=== PATIENT | male | born 1950 | race Caucasian/White ===

== ENCOUNTER 2017-01-27 20:46 | Inpatient (IN) | payer MEDICARE ==
[~2017-01-27] VITALS: Ht 175.2 cm; Wt 75.4 kg
--- NOTE | ~2017-01-27 | EKG ---
[place], [place] ELECTROCARDIOGRAM REPORT NAME: PATTY YAO UNIT #: [id number] ROOM: 419 DOCTOR: NESHA MAZA [facility] BIRTHDATE: [birth year] DOS: 01/27/2017 TIME: 2110. CONCLUSION: 1. Sinus rhythm. 2. Nonspecific ST changes. CARINE JEFFRIES MD CM:EKGRPT:ELECTROCARDIOGRAM REPORT [phone] CARINE JEFFRIES MD [facility]
[~2017-01-27 20:46] MED LIST: BENTYL10 MG PO; DONNATAL1 TAB PO; HYDROCODONE BIT1 T11 PO; MOTRIN800 MG PO; NEXIUM40 MG PO; PROBIOTIC FORMU1 CAP PO; TOBRADEX 0.1%-01 OI1 OP; Zofran4 MG PO
[2017-01-27 21:19] VITALS: BP 152/78
[2017-01-27 21:20] LABS: BASO % 0.6 % (0.0-1.0); EOS # 0.2 10*3/uL (0.0-0.4); EOS % 2.1 % (1.0-4.0); HEMATOCRIT 43.8 % (42.0-52.0); HEMOGLOBIN 15.3 g/dl (14.0-18.0); LYMPH # 1.8 10*3/uL (1.3-4.4); LYMPH % 25.5 % (27.0-41.0); MEAN CORPUSCULAR HGB 32.5 pg (27.0-31.0); MEAN CORPUSCULAR HGB CONC 34.9 g/dl (33.0-37.0); MEAN PLATELET VOLUME 9.8 fl (9.6-12.3); MONO # 0.5 10*3/uL (0.1-1.0); MONO % 7.5 % (3.0-9.0); NEUT # 4.6 10*3/uL (2.3-7.9); NEUT % 64.3 % (47.0-73.0); PLATELET COUNT AUTOMATED 151 10*3/uL (130-400); RED BLOOD COUNT 4.71 10*6/uL (4.50-5.90); RED CELL DISTRI WIDTH 12.3 % (0-14.5); WHITE BLOOD COUNT 7.2 10*3/uL (4.8-10.8)
[2017-01-27] MEDS ORDERED: ATIVAN1 MG PO (21:23)
[2017-01-27] MEDS ORDERED: PROTONIX40 MG PO (21:24)
[2017-01-27 21:26] VITALS: BP 166/98
[2017-01-27 21:34] LABS: ACT PARTIAL THROMBO TIME 24.7 SECONDS (20.8-31.5)
[2017-01-27 21:39] LABS: ALBUMIN 3.8 gm/dl (3.1-4.5); BUN 11 mg/dl (7-24); CHLORIDE 102 mmol/L (98-107); MAGNESIUM 2.2 mg/dL (1.5-2.1); POTASSIUM 3.5 mmol/L (3.5-5.1); SGOT/AST 20 IU/L (3-35); SGPT/ALT 21 U/L (12-78); SODIUM 139 mmol/L (136-145); TOTAL PROTEIN 7.2 gm/dL (6.4-8.2)
[2017-01-27 21:41] LABS: ALKALINE PHOSPHATASE 73 U/L (45-117)
[2017-01-27 21:44] LABS: TROPONIN I < 0.015 ng/ml (<0.045)
[2017-01-27 21:58] VITALS: BP 145/83
[2017-01-27 22:15] VITALS: BP 144/85
[2017-01-27 22:41] VITALS: BP 130/83
[2017-01-27 23:06] VITALS: BP 148/95
--- NOTE | 2017-01-27 23:32 | NUR ---
REPORT FROM AMANDA MEZA RN
--- NOTE | 2017-01-27 23:45 | NUR ---
A 66, admitted to , under the services of SARAH Carrillo DO with a diagnosis of CHEST PAIN. Chief complaint is CHEST PAIN. Patient arrived via stretcher from ER. Monitor applied. Initial assessment completed. Vital signs taken and recorded. SARAH CARRILLO DO notified of admission to the unit. Orders received. See assessment for past medical history, medications and allergies. Patient and/or family oriented to unit. [facility] reviewed. Clothing/patient valuable form completed. HAYES WESTBROOK
--- NOTE | 2017-01-27 23:57 | NUR ---
MED REC COMPLETED WITH PATIENT ALERT AND ORIENTED TO PERSON PLACE AND TIME
[2017-01-28] VITALS: BP 151/87
--- NOTE | 2017-01-28 00:28 | NUR ---
DR CR COVERING FOR DR JEFFRIES. STATES THAT HE CANNOT SEE THE PATIENT TOMORROW. IF THE PATIENT HAS ANYTHING COME UP ABNORMAL TO CALL AND HE CAN TRANSFER HIM, OR THEY CAN CONSULT ANOTHER IMPORT MANAGER. NURSING VOCAL ARTIST AWARE.
--- NOTE | 2017-01-28 00:30 | NUR ---
DR GARCIA AWARE OF CONVERSATION WITH DR CR
--- NOTE | 2017-01-28 02:16 | NUR ---
PATIENT RESTING IN BED WITH EYES CLOSED. RESPS EASY AND REGULAR. BED IN LOWEST POSITION, CALL KOFI MARTINA CLIFFORD
[2017-01-28 06:10] LABS: BASO # 0.1 10*3/uL (0.0-0.1); EOS # 0.2 10*3/uL (0.0-0.4); HEMATOCRIT 42.5 % (42.0-52.0); HEMOGLOBIN 14.6 g/dl (14.0-18.0); LYMPH # 1.6 10*3/uL (1.3-4.4); LYMPH % 31.8 % (27.0-41.0); MEAN CELL VOLUME 93.4 fl (80.0-94.0); MEAN CORPUSCULAR HGB 32.1 pg (27.0-31.0); MEAN CORPUSCULAR HGB CONC 34.4 g/dl (33.0-37.0); MONO # 0.5 10*3/uL (0.1-1.0); MONO % 9.6 % (3.0-9.0); NEUT # 2.7 10*3/uL (2.3-7.9); NEUT % 54.4 % (47.0-73.0); PLATELET COUNT AUTOMATED 128 10*3/uL (130-400); RED BLOOD COUNT 4.55 10*6/uL (4.50-5.90); RED CELL DISTRI WIDTH 12.5 % (0-14.5)
[2017-01-28 06:40] LABS: ALBUMIN 3.4 gm/dl (3.1-4.5); ALKALINE PHOSPHATASE 63 U/L (45-117); BUN 13 mg/dl (7-24); CHLORIDE 104 mmol/L (98-107); CHOLESTEROL 161 mg/dL (<200); CREATININE 1.14 mg/dL (0.70-1.30); HDL CHOLESTEROL 34 mg/dl (40-60); LDL CHOLESTEROL 102 mg/dL (9-159); MAGNESIUM 2.3 mg/dL (1.5-2.1); PHOSPHOROUS 3.5 mg/dL (2.5-4.9); POTASSIUM 3.6 mmol/L (3.5-5.1); SGOT/AST 14 IU/L (3-35); SGPT/ALT 16 U/L (12-78); SODIUM 139 mmol/L (136-145); TOTAL PROTEIN 6.4 gm/dL (6.4-8.2); TRIGLYCERIDES 124 mg/dl (<150); VLDL CHOLESTEROL 25 mg/dL (6-40)
[2017-01-28 06:46] LABS: VITAMIN D, 25-HYDROXY 23.8 ng/mL (30-100)
[2017-01-28 08:00] VITALS: BP 143/76
--- NOTE | 2017-01-28 08:25 | NUR ---
IN BED AWAKE ALERT AND ORIENTEDX3, FRIEND AT BEDSIDE. NO C/O. NO S/S OF DISTRESS. WILL CONT TO MONITOR. CALL LIGHT IN REACH. SEE ASSESS.
--- NOTE | 2017-01-28 10:26 | NUR ---
PT STATES HE ONLY GET NORCO AND ATIVAN [facility] AND THE OTHERS [facility] VIA MAIL. I DID VERIFY THESE MEDS WITH [employer].
--- NOTE | 2017-01-28 10:48 | NUR ---
Advisory Application Developer in to talk to patient. Patient states lives at home with . There are few steps in the home. Physician: susan Pharmacy: [facility] Home health services: none Patient's level of ADLs: INDEPENDENT Patient has working utilities: all working DME: none Follow-up physician's appointment after d/c: will be made by hospitalist nurse director upon discharge Does patient want to access PORTAL?: no Discharge plan discussed with patient, patient lives at home with , is independent in adls and ambulation, drives, denies any home needs. TIM MASSEY
[2017-01-28] MEDS ORDERED: B12,B-12,B 12500 MC1 PO (11:01)
[2017-01-28] MEDS ORDERED: VITAMIN D22000 UNIT PO (11:01)
--- NOTE | 2017-01-28 12:00 | NUR ---
PT DISCHARGED AT THIS TIME. VERBALIZED UNDERSTANDING OF DISCHARGE INSTRUCTIONS. HEART MONITOR RETURNED TO FLOOR. IV REMOVED AND PRESSURE DRESSING APPLIED.
== END 2017-01-28 12:00 | disposition home or self-care (01) | DRG 391 ==
LOC: ED 20:46 → 4E 22:29 → EDHOLD 22:29 → 4E 23:31
PROVIDERS: Emergency Medicine Emergency Medical Services; Hospitalist; ADMIT Internal Medicine
DX: K21.9 Gastro-esophageal reflux disease without esophagitis (principal); J18.9 Pneumonia, unspecified organism; F41.1 Generalized anxiety disorder; R07.89 Other chest pain; E55.9 Vitamin D deficiency, unspecified; E53.8 Deficiency of other specified B group vitamins; Z87.81 Personal history of (healed) traumatic fracture; Z79.899 Other long term (current) drug therapy; Z80.8 Family history of malignant neoplasm of other organs or systems

== ENCOUNTER 2018-05-17 10:33 | Emergency (ER) | payer MEDICARE ==
[~2018-05-17] VITALS: Ht 175.2 cm; Wt 76.2 kg
[~2018-05-17 10:33] MED LIST changes: +ATIVAN1 MG PO; +B12,B-12,B 12500 MC1 PO; +PROTONIX40 MG PO; +VITAMIN D22000 UNIT PO
[2018-05-17] MEDS ORDERED: Motrin,Rufen800 MG PO (12:16)
== END 2018-05-17 12:29 | disposition home or self-care (01) ==
LOC: ED 10:33
DX: S20.222A Contusion of left back wall of thorax, initial encounter (principal); R07.81 Pleurodynia; K21.9 Gastro-esophageal reflux disease without esophagitis; Z79.899 Other long term (current) drug therapy; W10.8XXA Fall (on) (from) other stairs and steps, initial encounter; Y93.89 Activity, other specified; Y92.89 Other specified places as the place of occurrence of the external cause; Y99.8 Other external cause status

== ENCOUNTER → 2019-03-22 | Outpatient (CLI) | payer MEDICARE ==
[~2019-03-22] MED LIST changes: +Motrin,Rufen800 MG PO
== END | disposition home or self-care (01) ==
LOC: US 14:00
DX: R22.32 Localized swelling, mass and lump, left upper limb (principal)

== ENCOUNTER → 2020-05-23 | Outpatient (CLI) | payer MEDICARE | END | disposition home or self-care (01) | LOC: COVID19 14:39 | PROVIDERS: ATTEND Nurse Practitioner Family | DX: J02.9 Acute pharyngitis, unspecified (principal); Z20.828 Contact with and (suspected) exposure to other viral communicable diseases ==

== ENCOUNTER → 2020-12-20 | Outpatient (CLI) | payer MEDICARE ==
[2020-12-20 13:33] LABS: BUN 11 mg/dl (7-24); CHLORIDE 104 mmol/L (98-107); CHOLESTEROL 203 mg/dL (<200); CREATININE 1.14 mg/dL (0.70-1.30); LDL CHOLESTEROL 130 mg/dL (9-159); POTASSIUM 3.6 mmol/L (3.5-5.1); SODIUM 139 mmol/L (136-145); TRIGLYCERIDES 155 mg/dl (<150)
== END | disposition home or self-care (01) ==
LOC: LAB 00:44
PROVIDERS: ATTEND Family Medicine
DX: R03.0 Elevated blood-pressure reading, without diagnosis of hypertension (principal); E78.01 Familial hypercholesterolemia

== ENCOUNTER → 2021-11-22 | Outpatient (CLI) | payer MEDICARE ==
[2021-11-22 10:11] LABS: BASO % 0.5 % (0.0-1.0); EOS # 0.2 10*3/uL (0.0-0.4); EOS % 3.1 % (1.0-4.0); HEMATOCRIT 47.1 % (42.0-52.0); LYMPH # 1.7 10*3/uL (1.3-4.4); LYMPH % 30.7 % (27.0-41.0); MEAN CELL VOLUME 92.9 fl (80.0-94.0); MEAN CORPUSCULAR HGB 32.1 pg (27.0-31.0); MEAN CORPUSCULAR HGB CONC 34.6 g/dl (33.0-37.0); MEAN PLATELET VOLUME 9.6 fl (9.6-12.3); MONO # 0.5 10*3/uL (0.1-1.0); MONO % 8.6 % (3.0-9.0); NEUT # 3.1 10*3/uL (2.3-7.9); NEUT % 56.9 % (47.0-73.0); PLATELET COUNT AUTOMATED 156 10*3/uL (130-400); RED BLOOD COUNT 5.07 10*6/uL (4.50-5.90); RED CELL DISTRI WIDTH 12.2 % (0-14.5); WHITE BLOOD COUNT 5.5 10*3/uL (4.8-10.8)
[2021-11-22 10:37] LABS: ALKALINE PHOSPHATASE 72 U/L (45-117); BUN 8 mg/dl (7-24); CHLORIDE 107 mmol/L (98-107); CHOLESTEROL 194 mg/dL (<200); LDL CHOLESTEROL 127 mg/dL (9-159); POTASSIUM 3.5 mmol/L (3.5-5.1); SGOT/AST 17 IU/L (3-35); SGPT/ALT 25 U/L (12-78); SODIUM 141 mmol/L (136-145); TRIGLYCERIDES 128 mg/dl (<150)
== END | disposition home or self-care (01) ==
LOC: LAB 01:44
PROVIDERS: ATTEND Family Medicine
DX: R53.83 Other fatigue (principal); Z13.220 Encounter for screening for lipoid disorders; Z79.899 Other long term (current) drug therapy

== ENCOUNTER → 2022-11-07 | Outpatient (CLI) | payer MEDICARE ==
[2022-11-07 11:01] LABS: BUN 8 mg/dl (9-23); CHLORIDE 103 mmol/L (98-107); POTASSIUM 3.7 mmol/L (3.4-5.1)
== END | disposition home or self-care (01) ==
LOC: LAB 01:05
PROVIDERS: ATTEND Family Medicine
DX: R53.83 Other fatigue (principal); Z79.899 Other long term (current) drug therapy

== ENCOUNTER 2024-01-14 17:56 | Emergency (ER) | payer MEDICARE ==
[~2024-01-14] VITALS: Ht 175.2 cm; Wt 77.1 kg
[2024-01-14] MEDS ORDERED: EC-NAPROXEN500 MG PO (18:53)
[2024-01-14 19:50] LABS: BILIRUBIN Negative (Negative); BLOOD Negative (Negative); CLARITY Clear (Clear); COLOR Yellow (Yellow); GLUCOSE Negative (Negative); KETONE Trace (Negative); LEUKO ESTERASE Negative (Negative); NITRITE Negative (Negative); PH 6.5 (4.5-8.0)
[2024-01-14 19:58] LABS: BACTERIA TRACE; HYALINE CAST 0-2; MUCOUS 2+; RBC 0-2 rbc/hpf (0-2)
== END 2024-01-14 20:42 | disposition home or self-care (01) ==
LOC: ED 17:56
PROVIDERS: Emergency Medicine
DX: S39.011A Strain of muscle, fascia and tendon of abdomen, initial encounter (principal); F41.9 Anxiety disorder, unspecified; Z98.890 Other specified postprocedural states; X58.XXXA Exposure to other specified factors, initial encounter; Y93.89 Activity, other specified; Y92.89 Other specified places as the place of occurrence of the external cause; Y99.8 Other external cause status

== ENCOUNTER → 2024-02-03 | Outpatient (CLI) | payer MEDICARE, OTHER ==
[~2024-02-03] MED LIST changes: +EC-NAPROXEN500 MG PO
[2024-02-03 12:07] LABS: FREE T4 1.19 ng/dl (0.89-1.76)
== END | disposition home or self-care (01) ==
LOC: LAB 10:35
PROVIDERS: ATTEND Physician Assistant Medical
DX: Z01.818 Encounter for other preprocedural examination (principal); K59.00 Constipation, unspecified

== ENCOUNTER 2024-02-21 15:15 | Observation (INO) | payer MEDICARE ==
[~2024-02-21] VITALS: Ht 175.2 cm; Wt 74.1 kg
[2024-02-21 15:30] VITALS: BP 152/82
[2024-02-21 15:47] LABS: BASO % 0.4 % (0.0-1.0); EOS # 0.1 10*3/uL (0.0-0.4); EOS % 0.8 % (1.0-4.0); HEMATOCRIT 42.8 % (42.0-52.0); LYMPH % 12.3 % (27.0-41.0); MEAN CELL VOLUME 95.3 fl (80.0-94.0); MEAN CORPUSCULAR HGB 32.1 pg (27.0-31.0); MEAN CORPUSCULAR HGB CONC 33.6 g/dl (33.0-37.0); MEAN PLATELET VOLUME 10.1 fl (9.6-12.3); MONO # 0.5 10*3/uL (0.1-1.0); MONO % 5.8 % (3.0-9.0); NEUT # 6.3 10*3/uL (2.3-7.9); NEUT % 80.4 % (47.0-73.0); PLATELET COUNT AUTOMATED 153 10*3/uL (130-400); RED BLOOD COUNT 4.49 10*6/uL (4.50-5.90); RED CELL DISTRI WIDTH 12.2 % (0-14.5); WHITE BLOOD COUNT 7.9 10*3/uL (4.8-10.8)
[2024-02-21 16:02] LABS: ACT PARTIAL THROMBO TIME 29.9 SECONDS (20.0-32.1)
[2024-02-21 16:03] LABS: BUN 9 mg/dl (9-23); CHLORIDE 103 mmol/L (98-107); POTASSIUM 3.2 mmol/L (3.4-5.1)
[2024-02-21] MEDS ORDERED: POTASSIUM CHLORIDE 20 MEQ TAB PO ONE (16:55)
[2024-02-21] MEDS ORDERED: BISACODYL 5 MG TAB PO PRN (18:15)
[2024-02-21] MEDS ORDERED: BISACODYL 10 MG SUPP R PRN (18:15)
[2024-02-21] MEDS ORDERED: Magnesium Hydroxide 30 ML UDC PO PRN (18:15)
[2024-02-21] MEDS ORDERED: MORPHINE Sulfate 2 MG/ML SYR IV PRN (18:15)
[2024-02-21] MEDS ORDERED: TEMAZEPAM 15 MG CAP PO PRN (18:15)
[2024-02-21] MEDS ORDERED: ACETAMINOPHEN 325 MG TAB PO PRN (18:15)
[2024-02-21] MEDS ORDERED: ACETAMINOPHEN 650 MG SUPP R PRN (18:15)
[2024-02-21] MEDS ORDERED: PANTOPRAZOLE SO40 MG PO (18:33)
[2024-02-21] MEDS ORDERED: DICYCLOMINE HYD10 MG PO (18:34)
[2024-02-21] MEDS ORDERED: FAMOTIDINE40 MG PO (18:35)
[2024-02-21] MEDS ORDERED: EMERGEN-C 500500 MG PO (18:39)
[2024-02-21] MEDS ORDERED: VIT D3-VIT K21 EACH PO (18:41)
[2024-02-21 18:46] VITALS: BP 136/74
[2024-02-21] MEDS ORDERED: ATORVASTATIN CALCIUM 40 MG TABLET PO SCH (19:00)
[2024-02-21] MEDS ORDERED: METOPROLOL SUCCINATE XR 25 MG TAB PO SCH (19:00)
[2024-02-21] MEDS ORDERED: SODIUM CHLORIDE 0.9% 1,000 ML IV ONE (19:05)
[2024-02-21] MEDS ORDERED: ASPIRIN ENTERIC COATED 81 MG TAB PO SCH (19:20)
[2024-02-21 19:30] VITALS: BP 145/70
[2024-02-21 20:05] VITALS: BP 157/69
[2024-02-21] MEDS ORDERED: LORazepam 1 MG TAB PO SCH (22:00)
[2024-02-22] VITALS: BP 128/63
[2024-02-22] MEDS ORDERED: Pantoprazole Sodium 40 MG TAB PO SCH (06:00)
[2024-02-22 06:27] LABS: BASO % 0.8 % (0.0-1.0); EOS # 0.1 10*3/uL (0.0-0.4); EOS % 2.5 % (1.0-4.0); HEMATOCRIT 44.4 % (42.0-52.0); LYMPH # 1.5 10*3/uL (1.3-4.4); LYMPH % 29.5 % (27.0-41.0); MEAN CELL VOLUME 97.2 fl (80.0-94.0); MEAN CORPUSCULAR HGB 32.8 pg (27.0-31.0); MEAN CORPUSCULAR HGB CONC 33.8 g/dl (33.0-37.0); MEAN PLATELET VOLUME 10.5 fl (9.6-12.3); MONO # 0.4 10*3/uL (0.1-1.0); MONO % 8.5 % (3.0-9.0); NEUT % 58.5 % (47.0-73.0); PLATELET COUNT AUTOMATED 149 10*3/uL (130-400); RED BLOOD COUNT 4.57 10*6/uL (4.50-5.90); RED CELL DISTRI WIDTH 12.6 % (0-14.5); WHITE BLOOD COUNT 5.2 10*3/uL (4.8-10.8)
[2024-02-22 06:36] LABS: ALKALINE PHOSPHATASE 56 U/L (46-116); BUN 6 mg/dl (9-23); CHLORIDE 106 mmol/L (98-107); CHOLESTEROL 146 mg/dL (<200); FREE T4 1.14 ng/dl (0.89-1.76); LDL CHOLESTEROL 95 mg/dL (9-159); POTASSIUM 3.7 mmol/L (3.4-5.1); SGPT/ALT 20 U/L (5-49); TRIGLYCERIDES 69 mg/dl (<150)
[2024-02-22] MEDS ORDERED: Regadenoson 0.4 MG/5 ML SYR IV ONE (07:04)
[2024-02-22 08:00] VITALS: BP 147/70
[2024-02-22] MEDS ORDERED: Dicyclomine Hydrochloride 10 MG CAP PO SCH (10:00)
[2024-02-22] MEDS ORDERED: Enoxaparin Sodium 40 MG/0.4 ML SYR SC SCH (10:00)
[2024-02-22] MEDS ORDERED: Cholecalciferol 2,000 UNIT TABLET (50 MCG) PO SCH (10:00)
[2024-02-22] MEDS ORDERED: FAMOTIDINE 20 MG TAB PO SCH (10:00)
[2024-02-22] MEDS ORDERED: Lactobacillus Acidophilus/LA 1 TAB TAB PO SCH (10:00)
[2024-02-22] MEDS ORDERED: ASCORBIC ACID 500 MG TAB PO SCH (10:00)
[2024-02-22 12:00] VITALS: BP 151/82
[2024-02-22] MEDS ORDERED: METOPROLOL SUCC25 M2 PO (15:22)
[2024-02-22] MEDS ORDERED: ASPIRIN ADULT L81 M2 PO (15:22)
[2024-02-22] MEDS ORDERED: ATORVASTATIN CA40 M1 PO (15:22)
== END 2024-02-22 16:00 | disposition home or self-care (01) ==
LOC: ED 15:15 → 4E 18:14 → EDHOLD 18:14 → 4E 19:42
PROVIDERS: Internal Medicine; Student in an Organized Health Care Education/Training Program; ADMIT Internal Medicine; ATTEND Internal Medicine
DX: R07.89 Other chest pain (principal); E87.6 Hypokalemia; R00.1 Bradycardia, unspecified; K21.9 Gastro-esophageal reflux disease without esophagitis; F41.1 Generalized anxiety disorder; R73.9 Hyperglycemia, unspecified; Z79.899 Other long term (current) drug therapy

== ENCOUNTER → 2024-04-22 | Outpatient (CLI) | payer MEDICARE ==
[~2024-04-22] MED LIST changes: +ASPIRIN ADULT L81 M2 PO; +ATORVASTATIN CA40 M1 PO; +DICYCLOMINE HYD10 MG PO; +EMERGEN-C 500500 MG PO; +FAMOTIDINE40 MG PO; +METOPROLOL SUCC25 M2 PO; +PANTOPRAZOLE SO40 MG PO; +VIT D3-VIT K21 EACH PO
[2024-04-22 09:51] LABS: BUN 10 mg/dl (9-23); CHLORIDE 101 mmol/L (98-107); POTASSIUM 3.4 mmol/L (3.4-5.1)
== END | disposition home or self-care (01) ==
LOC: LAB 08:59
PROVIDERS: ATTEND Internal Medicine Cardiovascular Disease
DX: I10 Essential (primary) hypertension (principal)

== ENCOUNTER 2024-06-07 17:01 | Emergency (ER) | payer MEDICARE, OTHER ==
[~2024-06-07] VITALS: Ht 175.2 cm; Wt 70.8 kg
[2024-06-07 18:05] LABS: BASO % 0.5 % (0.0-1.0); EOS # 0.1 10*3/uL (0.0-0.4); EOS % 1.6 % (1.0-4.0); HEMATOCRIT 44.7 % (42.0-52.0); MEAN CELL VOLUME 95.5 fl (80.0-94.0); MEAN CORPUSCULAR HGB 32.7 pg (27.0-31.0); MEAN CORPUSCULAR HGB CONC 34.2 g/dl (33.0-37.0); MEAN PLATELET VOLUME 9.8 fl (9.6-12.3); MONO # 0.5 10*3/uL (0.1-1.0); MONO % 8.1 % (3.0-9.0); NEUT # 3.5 10*3/uL (2.3-7.9); NEUT % 60.9 % (47.0-73.0); PLATELET COUNT AUTOMATED 159 10*3/uL (130-400); RED BLOOD COUNT 4.68 10*6/uL (4.50-5.90); RED CELL DISTRI WIDTH 12.5 % (0-14.5); WHITE BLOOD COUNT 5.7 10*3/uL (4.8-10.8)
[2024-06-07 18:23] LABS: ALKALINE PHOSPHATASE 69 U/L (46-116); BUN 11 mg/dl (9-23); CHLORIDE 103 mmol/L (98-107); POTASSIUM 3.8 mmol/L (3.4-5.1); SGPT/ALT 12 U/L (5-49); TOTAL PROTEIN 6.7 gm/dL (6.0-8.0)
[2024-06-07] MEDS ORDERED: ENTRESTO 24 MG1 EACH PO (19:00)
== END 2024-06-07 20:32 | disposition home or self-care (01) ==
LOC: ED 17:01
PROVIDERS: Internal Medicine
DX: I95.1 Orthostatic hypotension (principal); D75.89 Other specified diseases of blood and blood-forming organs; R42 Dizziness and giddiness; K21.9 Gastro-esophageal reflux disease without esophagitis; E83.41 Hypermagnesemia; F41.9 Anxiety disorder, unspecified; I13.0 Hypertensive heart and chronic kidney disease with heart failure and stage 1 through stage 4 chronic kidney disease, or unspecified chronic kidney disease; I50.9 Heart failure, unspecified; N18.31 Chronic kidney disease, stage 3a; Z95.5 Presence of coronary angioplasty implant and graft; Z98.890 Other specified postprocedural states

== ENCOUNTER 2024-09-12 12:55 | Emergency (ER) | payer MEDICARE, OTHER ==
[~2024-09-12] VITALS: Ht 175.2 cm; Wt 72.1 kg
[~2024-09-12 12:55] MED LIST changes: +ENTRESTO 24 MG1 EACH PO
[2024-09-12 13:45] LABS: BASO % 0.6 % (0.0-1.0); EOS # 0.1 10*3/uL (0.0-0.4); HEMATOCRIT 43.2 % (42.0-52.0); MEAN CELL VOLUME 96.2 fl (80.0-94.0); MEAN CORPUSCULAR HGB 32.7 pg (27.0-31.0); MEAN PLATELET VOLUME 9.9 fl (9.6-12.3); MONO # 0.5 10*3/uL (0.1-1.0); MONO % 9.2 % (3.0-9.0); NEUT # 3.2 10*3/uL (2.3-7.9); NEUT % 65.9 % (47.0-73.0); PLATELET COUNT AUTOMATED 147 10*3/uL (130-400); RED BLOOD COUNT 4.49 10*6/uL (4.50-5.90); WHITE BLOOD COUNT 4.9 10*3/uL (4.8-10.8)
[2024-09-12 14:04] LABS: ALKALINE PHOSPHATASE 63 U/L (46-116); BUN 12 mg/dl (9-23); CHLORIDE 101 mmol/L (98-107); LIPASE 43 U/L (12-53); POTASSIUM 4.1 mmol/L (3.4-5.1); SGPT/ALT 11 U/L (5-49); TOTAL PROTEIN 6.5 gm/dL (6.0-8.0)
[2024-09-12 14:15] LABS: BILIRUBIN Negative (Negative); BLOOD Negative (Negative); CLARITY Clear (Clear); COLOR Yellow (Yellow); GLUCOSE Negative (Negative); KETONE Negative (Negative); LEUKO ESTERASE Negative (Negative); NITRITE Negative (Negative); PH 6.5 (4.5-8.0); SPECIFIC GRAVITY <= 1.005 (1.001-1.030); UROBILINOGEN 0.2 E.U./dl (0.0-1.0)
[2024-09-12 14:37] LABS: EPITHELIAL CELLS 0-2; RBC 0-2 rbc/hpf (0-2)
== END 2024-09-12 15:02 | disposition home or self-care (01) ==
LOC: ED 12:55
PROVIDERS: Physician Assistant Medical
DX: R10.84 Generalized abdominal pain (principal); N18.9 Chronic kidney disease, unspecified; K21.9 Gastro-esophageal reflux disease without esophagitis; Z79.899 Other long term (current) drug therapy; Z98.890 Other specified postprocedural states

== ENCOUNTER 2025-01-21 17:16 | Emergency (ER) | payer MEDICARE, OTHER ==
[~2025-01-21] VITALS: Ht 175.2 cm
[2025-01-21] MEDS ORDERED: METHOCARBAMOL 750 MG TAB PO ONE (17:40)
[2025-01-21] MEDS ORDERED: NAPROXEN 250 MG TAB PO ONE (17:40)
[2025-01-21] MEDS ORDERED: PERCOCET 5-3251 EACH PO (18:31)
[2025-01-21] MEDS ORDERED: MEDROL DOSEPAK4 MG PO (18:31)
== END 2025-01-21 18:37 | disposition home or self-care (01) ==
LOC: ED 17:16
DX: S22.32XA Fracture of one rib, left side, initial encounter for closed fracture (principal); M54.12 Radiculopathy, cervical region; M25.522 Pain in left elbow; R20.2 Paresthesia of skin; Z79.899 Other long term (current) drug therapy; W01.198A Fall on same level from slipping, tripping and stumbling with subsequent striking against other object, initial encounter; Y93.89 Activity, other specified; Y92.89 Other specified places as the place of occurrence of the external cause; Y99.8 Other external cause status

== ENCOUNTER 2025-04-28 07:08 | Emergency (ER) | payer MEDICARE, OTHER ==
[~2025-04-28] VITALS: Ht 175.2 cm; Wt 74.4 kg
[~2025-04-28 07:08] MED LIST changes: +MEDROL DOSEPAK4 MG PO; +PERCOCET 5-3251 EACH PO
[2025-04-28 07:35] LABS: BILIRUBIN Negative (Negative); BLOOD 1+ (Negative); CLARITY Cloudy (Clear); COLOR Yellow (Yellow); KETONE Negative (Negative); LEUKO ESTERASE 3+ (Negative); NITRITE Negative (Negative); PH 6.0 (4.5-8.0); SPECIFIC GRAVITY 1.010 (1.001-1.030); UROBILINOGEN 1.0 E.U./dl (0.0-1.0)
[2025-04-28 07:55] LABS: WBC TNTC wbc/hpf (0-5)
[2025-04-28 07:56] LABS: BACTERIA 4+
[2025-04-28] MEDS ORDERED: CEPHALEXIN500 M1 PO (08:02)
[2025-05-03] MEDS ORDERED: 'CIPRO500 M1 PO (12:04)
[2025-05-03] MEDS ORDERED: ENTRESTO 24 MG1 EACH PO (12:04)
== END 2025-04-28 08:13 | disposition home or self-care (01) ==
LOC: ED 07:08
PROVIDERS: Student in an Organized Health Care Education/Training Program
DX: N39.0 Urinary tract infection, site not specified (principal); F41.9 Anxiety disorder, unspecified; R39.198 Other difficulties with micturition

== ENCOUNTER → 2025-05-16 | Outpatient (CLI) | payer MEDICARE, OTHER ==
[~2025-05-16] MED LIST changes: +'CIPRO500 M1 PO; +CEPHALEXIN500 M1 PO
== END | disposition home or self-care (01) ==
LOC: LAB 12:21
PROVIDERS: ATTEND Nurse Practitioner Family
DX: R97.20 Elevated prostate specific antigen [PSA] (principal)